=== PATIENT | female | born 1970 | race Caucasian/White ===

== ENCOUNTER 2016-08-04 18:28 | Emergency (ER) | payer OTHER ==
[~2016-08-04] VITALS: Ht 160 cm; Wt 65.0 kg
[2016-08-04 18:35] VITALS: BP 117/78; PULSE 58; RESP 16; TEMP 98.2; O2SAT 100
[2016-08-04] MEDS ORDERED: ESTR.625 PO (18:53)
--- NOTE | 2016-08-04 19:20 | PD ---
HPI Chief Complaint: Back/ Neck Pain or Injury Time Seen by Provider: 19:14 Travel History International Travel<30 days: No Contact w/Intl Traveler<30days: No Traveled to known affect area: No History of Present Illness HPI 2-year-old female presents to the emergency room for evaluation of acute on chronic back pain. Patient has had intermittent back pain for the past few years but states it has never been this bad. She denies any recent trauma or injury. States pain is in the midline and radiates down both legs. She has been taking large amounts of ibuprofen with moderate relief in symptoms. She went to the chiropractor earlier today and upon exiting one of the machines her pain worsened. She reports paresthesias localized to the right ankle. Denies IV drug use, recent weight loss, or fevers. Patient denies chronic medical conditions. PFSH Past Medical History Medical History: Denies Significant Hx Tetanus Vaccination: < 5 Years Influenza Vaccination: Yes ?: Not Past Surgical History Appendectomy: Yes Section: Yes Cholecystectomy: Yes Hysterectomy: Yes Other Surgery: Yes (Rt. breast X's 5, "tummy tuck" ) Social History Alcohol Use: No Tobacco Use: No Substance Use: No Allergies-Medications (Allergen,Severity, Reaction): Coded Allergies: Contrast Media (Verified Allergy, Severe, Hives, 08/04/16) Erythromycin (Verified Allergy, Severe, Rash, 08/04/16) Levaquin (Verified Allergy, Severe, Rash, 08/04/16) Sulfa (Verified Allergy, Severe, Hives, 08/04/16) Reported Meds & Prescriptions Reported Meds & Active Scripts Active Prednisone 20 Mg Tab 40 Mg PO DAILY Take 40 mg (2 tablets) daily for 5 days Ibuprofen 600 Mg Tab 600 Mg PO Q8HR PRN 10 Days Robaxin (Methocarbamol) 750 Mg Tab 750 Mg PO Q8HR 10 Days Reported Premarin (Estrogens Conjugated) 0.625 Mg Tab 0.625 Mg PO DAILY Review of Systems Except as stated in HPI: all other systems reviewed are Neg Physical Exam Narrative GENERAL: Well-nourished, well-developed female in no acute distress. Afebrile. Ambulatory. SKIN: Warm and dry. No erythema or ecchymosis. HEAD: Normocephalic. EYES: No scleral icterus. No injection or drainage. NECK: Supple, trachea midline. No JVD or lymphadenopathy. CARDIOVASCULAR: Regular rate and rhythm without murmurs, gallops, or rubs. RESPIRATORY: Breath sounds equal bilaterally. No accessory muscle use. BACK: Tenderness to palpation of the lumbar spine. No obvious deformity. No CVA tenderness. Positive straight leg raise bilaterally. 2+ dorsalis pedis pulses bilaterally. Strength 5/5 and equal in lower extremities. Data Data Last Documented VS Vital Signs Date Time Temp Pulse Resp B/P Pulse Ox O2 Delivery O2 Flow Rate FiO2 08/04/16 18:35 98.2 58 16 117/[address] Lumb Spine W/O Contrast (08/04/16 ) Ketorolac Inj (Toradol Inj) (08/04/16 20:00) Orphenadrine Inj (Norflex Inj) (08/04/16 20:00) MDM Medical Decision Making Medical Screen Exam Complete: Yes Emergency Medical Condition: Yes Medical Record Reviewed: Yes Differential Diagnosis Fracture versus spondylolisthesis versus bone lesion Narrative Course 46-year-old female presents to the emergency room for evaluation of acute and chronic low back pain with radiation to bilateral legs and paresthesias localized to the right ankle. Patient denies any recent trauma or injury. Mild midline tenderness to lumbar spine. Strength 5/5 and equal in lower extremities. No red flag symptoms. CT of the spine shows degenerative changes and mild stenosis. Patient given Toradol and Norflex in the emergency room. She was discharged with prescriptions for ibuprofen, Robaxin, and prednisone. Patient told to follow up with the primary care physician, stained glass painter, or orthopedist if symptoms persist. Told to return sooner for worsening symptoms. Agrees to plan. Diagnosis Primary Impression: Degenerative disc disease, lumbar Additional Impression: Acute sciatica Referrals: Primary Care Physician Patient Instructions: Degenerative Disc Disease (ED), General Instructions, Sciatica (ED) Additional Instructions: Rest and drink plenty of fluids. Take prednisone as directed, until gone. Take Robaxin as directed, as needed for pain. Take ibuprofen with food as directed, as needed for pain. Apply ice to the affected area for 20 minutes at a time, as needed for pain and swelling. Follow-up with a primary care physician. Return to the emergency room for worsening symptoms. Med/Other Pt SpecificInfo: Prescription(s) given Scripts Prednisone 20 Mg Tab40 Mg PO DAILY #10 TAB Ref 0 Take 40 mg (2 tablets) daily for 5 days Prov:Ollie Philippe MD 08/04/16 Ibuprofen 600 Mg [id number] Mg PO Q8HR PRN (PAIN) 10 Days Ref 0 Prov:Ollie Philippe MD 08/04/16 Methocarbamol (Robaxin)750 Mg [id number] Mg PO Q8HR 10 Days Ref 0 Prov:Ollie Philippe MD 08/04/16 Disposition: 01 DISCHARGE HOME Condition: Stable Gay Pradhan August 04, 2016 19:20
[2016-08-04] MEDS ORDERED: KETOROLAC TROMETHAMINE 60 MG/2 ML (IM) VIAL IM ONE (20:00)
[2016-08-04] MEDS ORDERED: ORPHENADRINE INJ 60 MG/2 ML AMP IM ONE (20:00)
[2016-08-04] MEDS ORDERED: PRED20 PO (20:02)
[2016-08-04] MEDS ORDERED: IBUP-232 PO (20:02)
[2016-08-04] MEDS ORDERED: ROBA750T PO (20:02)
--- NOTE | 2016-08-04 20:04 | RADHPO ---
EXAM DATE/TIME: 08/04/2016 19:32 [facility] COMPARISON: No previous studies available for comparison. INDICATIONS : Low back pain with radiculopathy down left leg. RADIATION DOSE: 24.58 CTDIvol (mGy) MEDICAL HISTORY : None SURGICAL HISTORY : Appendectomy. Cholecystectomy. section.Hysterectomy. ENCOUNTER: Initial ACUITY: 1 day PAIN SCALE: 5/10 LOCATION: Left lumbar TECHNIQUE: Volumetric scanning of the lumbar spine was performed. Multiplanar reconstructions in the sagittal, coronal and oblique axial planes were performed. Using automated exposure control and adjustment of the mA and/or kV according to patient size, radiation dose was kept as low as reasonably achievable t o obtain optimal diagnostic quality images. FINDINGS: VERTEBRAE: Normal vertebral body height. ALIGNMENT: No evidence of subluxation. T12-L1: The thecal sac has a normal diameter. No evidence of disc bulge or protrusion. The neural foramina are patent bilaterally. L1-L2: The thecal sac has a normal diameter. No evidence of disc bulge or protrusion. The neural foramina are patent bilaterally. L2-L3: The thecal sac has a normal diameter. No evidence of disc bulge or protrusion. The neural foramina are patent bilaterally. L3-L4: The thecal sac has a normal diameter. No evidence of disc bulge or protrusion. The neural foramina are patent bilaterally. L4-L5: The thecal sac has a normal diameter. No evidence of disc bulge or protrusion. The neural foramina are patent bilaterally. L5-S1: The disc has moderate to severe loss of height. There is sclerosis and irregularity of the inferior e ndplate of L5. There is circumferential small disc osteophyte complex. Mild bilateral facet osteoarth ritis present with thickening of the ligamentum flavum. There is associated mild spinal stenosis, corinna nly the right lateral recess. There is mild right and [id number] left foraminal stenosis. Patient has transitional lumbosacral anatomy with partially lumbarized S1. Juxtavertebral soft tissues are within normal limits. CONCLUSION: 1. Disc and endplate changes at L5/S1 are presumably chronic/degenerative in etiology. There is assoc iated mild narrowing of the lateral recesses, mainly on the right, and mild right, mild to moderate l eft foraminal stenosis at this level. 2. No significant changes or foraminal/spinal stenosis at other levels. 3. Transitional lumbosacral anatomy with partially lumbarized S1 noted. Phil Wang MD on August 04, 2016 at 19:57 Board Certified Radiologist. This report was verified electronically.
== END 2016-08-04 20:40 | disposition home or self-care (01) ==
LOC: PHEFT 18:28
DX: M51.36 Other intervertebral disc degeneration, lumbar region (principal); M54.32 Sciatica, left side; M54.31 Sciatica, right side; G89.29 Other chronic pain; R20.9 Unspecified disturbances of skin sensation
CPT/HCPCS: 72131; 96372; 99284; J1885; J2360